=== PATIENT | male | born 1945 | race Caucasian/White ===

== ENCOUNTER 2019-03-03 17:33 | Emergency (ER) | payer MEDICARE, BC ==
--- NOTE | 2019-03-03 18:19 | EDM.PDOC ---
ED HPI GENERAL MEDICAL PROBLEM - General Chief Complaint: Diabetic Complaint Stated Complaint: MEDICAL [facility] Time Seen by Provider: 03/03/19 18:22 Source of Information: Reports: Patient, Family History Limitations: Reports: No Limitations - History of Present Illness INITIAL COMMENTS - FREE TEXT/NARRATIVE: pt was hypoglycemic with a bs of 17. He was given a tube of glucose, no iv was started. I arrival he had a bs of 42. He was given orange juice withj 3 packets of sugar. Onset: Today, Sudden, Other ( He was found in the br between the wall and the stool. His was not able to move him. ) Duration: Hour(s): Location: Reports: Head, Other (pt has been more confused for the past week. ) Associated Symptoms: Reports: Confusion, Diaphoresis, Shortness of Breath, Other (pt has eaten only a apple today. ) - Related Data Allergies Allergy/AdvReac Type Severity Reaction Status Date / Time Iodinated Contrast- Oral and Allergy Swelling Verified 11/18/17 07:08 IV Dye lisinopril Allergy Muscle Verified 11/18/17 07:08 Weakness chocolate Allergy Rash Uncoded 11/18/17 07:05 Home Meds: Home Meds Aspirin [Halfprin] 81 mg PO DAILY 12/20/14 [History] Betamethasone/Propylene Glyc [Betamethasone Dp Aug 0.05% Oin] 1 film TOP BID [History] Bisacodyl [Dulcolax] 5 mg PO DAILY PRN 12/20/14 [History] Cetirizine HCl [Zyrtec] 10 mg PO DAILY PRN 12/20/14 [History] Clobetasol [Temovate 0.05% Oint] 1 film TOP BID PRN 12/20/14 [History] Insulin Aspart [NovoLOG] 25 units SUBCUT TIDMEALS 12/20/14 [History] Insulin Glargine,Hum.Rec.Anlog [Lantus Solostar] 70 units SUBCUT BEDTIME [History] Isosorbide Mononitrate [Imdur] 30 mg PO DAILY 12/20/14 [History] Metoprolol Succinate [Toprol Xl] 50 mg PO DAILY 12/20/14 [History] Ranitidine [Zantac] 150 mg PO DAILY PRN 12/20/14 [History] atorvaSTATin Calcium [Atorvastatin Calcium] 40 mg PO DAILY 12/20/14 [History] metOLazone [Zaroxolyn] 2.5 tab PO DAILY 12/20/14 [History] ED ROS GENERAL - Review of Systems Review Of Systems: See Below Constitutional: Reports: Malaise, Weakness, Decreased Appetite, Other ( confusion) Respiratory: Reports: Shortness of Breath, Wheezing Cardiovascular: Reports: Other (pt is not having chest pain) Endocrine: Reports: Low Glucose, Other (pt had a 17 at the house. After a tube of glucose he had a 42 on arrival. ) GI/Abdominal: Reports: No Symptoms : Reports: No Symptoms Musculoskeletal: Reports: No Symptoms Skin: Reports: No Symptoms ED EXAM GENERAL NO PERIP PULSE - Physical Exam Exam: See Below Text/Narrative:: pt arrived with sob, low bs and alot of edema. He has been confused for the past 2 days. He was on the floor today and his was not able to get him up. Exam Limited By: No Limitations General Appearance: Alert, Anxious Ears: Normal TMs Nose: Normal Inspection Throat/Mouth: Normal Inspection Head: Atraumatic Neck: Normal Inspection Respiratory/Chest: Respiratory Distress, Wheezing Cardiovascular: Regular Rate, Rhythm, Tachycardia GI/Abdominal: Other (Male) Exam: Deferred Rectal (Males) Exam: Deferred Back Exam: Normal Inspection Extremities: Pedal Edema Neurological: Alert, Other (pt becomes obtunded easily. He had a bs of 17 at home and 42 when he got here. ) Course - Vital Signs Last Recorded V/S: Last Vital Signs Temp 35.9 C 03/03/19 18:04 Pulse 63 03/03/19 19:43 Resp 17 03/03/19 19:43 BP 171/59 H 03/03/19 19:43 Pulse Ox 96 03/03/19 19:43 - Orders/Labs/Meds Orders: Active Orders 24 hr Category Date Time Status EKG Documentation Completion [RC] ASDIRECTED Care 03/03/19 19:25 Active EKG Documentation Completion [RC] ASDIRECTED Care 03/03/19 19:33 Active Collazo Catheter Insertion [Insert Urinary Catheter] [OM. Care 03/03/19 19:15 Ordered PC] Q24H RT Aerosol Therapy [RC] ASDIRECTED Care 03/03/19 18:51 Active Urinary Catheter Assessment [RC] ASDIRECTED Care 03/03/19 19:10 Active CULTURE BLOOD [BC] Urgent Lab 03/03/19 19:25 Results CULTURE URINE [RM] Stat Lab 03/03/19 20:12 Received Blood Culture x2 Reflex Set [OM.PC] Urgent Oth 03/03/19 19:08 Ordered Saline Lock Insert [OM.PC] Routine Oth 03/03/19 18:50 Ordered EKG 12 Lead [EK] Routine Ther 03/03/19 19:25 Ordered EKG 12 Lead [EK] Routine Ther 03/03/19 19:33 Ordered Labs: Laboratory Tests 03/03/19 03/03/19 03/03/19 Range/Units 18:17 18:20 18:20 WBC 16.6 H (4.5-11.0) K/uL RBC 4.95 (4.30-5.90) M/uL Hgb 13.7 (12.0-15.0) g/dL Hct 44.5 (40.0-54.0) % MCV 90 (80-98) fL MCH 28 (27-31) pg MCHC 31 L (32-36) % Plt Count 316 (150-400) K/uL Neut % (Auto) 84 H (36-66) % Lymph % (Auto) 7 L (24-44) % [place] % (Auto) 9 H (2-6) % Eos % (Auto) 1 L (2-4) % Baso % (Auto) 0 (0-1) % Puncture Site Lt radial ABG pH 7.240 L (7.350-7.450) ABG pCO2 62.7 H (35.0-42.0) mmHg ABG pO2 68.9 L (75.0-100.0) mmHg ABG HCO3 25.9 (22.0-26.0) mmol/L ABG Total CO2 23.8 (23.0-27.0) mmol/L ABG O2 Saturation 90.1 L (95.0-98.0) % ABG O2 Content 17.6 (15.0-23.0) %vol ABG Base Excess -2.5 mm/L ABG Hemoglobin 14.1 (13.5-18.0) g/dL ABG Oxyhemoglobin 88.6 % ABG Carboxyhemoglobin 0.9 (0.0-1.6) % ABG Methemoglobin 0.8 % Manish Test Passed O2 Delivery Device Nasal cannula Oxygen Flow Rate 4 L Sodium 140 (140-148) mmol/L Potassium 4.1 (3.6-5.2) mmol/L Chloride 103 (100-108) mmol/L Carbon Dioxide 29 (21-32) mmol/L Anion Gap 8.5 (5.0-14.0) mmol/L BUN 94 H* (7-18) mg/dL Creatinine 7.0 H* (0.8-1.3) mg/dL Est Cr Clr Drug Dosing 9.71 mL/min Estimated GFR (MDRD) 8 L (>60) Glucose 53 L (74-106) mg/dL Lactic Acid (0.4-2.0) mmol/L Calcium 8.6 (8.5-10.1) mg/dL Total Bilirubin 0.4 (0.2-1.0) mg/dL AST 28 (15-37) U/L ALT 30 (12-78) U/L Alkaline Phosphatase 109 (46-116) U/L Troponin I (0.000-0.056) ng/mL NT-Pro-B Natriuret Pep (5-450) pg/mL Total Protein 7.1 (6.4-8.2) g/dL Albumin 2.4 L (3.4-5.0) g/dL Globulin 4.7 H (2.3-3.5) g/dL Albumin/Globulin Ratio 0.5 L (1.2-2.2) Urine Color Urine Appearance Urine pH (4.5-8.0) Ur Specific [place] (1.008-1.030) Urine Protein (NEGATIVE) mg/dL Urine Glucose (UA) (NEGATIVE) mg/dL Urine Ketones (NEGATIVE) mg/dL Urine Occult Blood (NEGATIVE) Urine Nitrite (NEGAITVE) Urine Bilirubin (NEGATIVE) Urine Urobilinogen (NORMAL) mg/dL Ur Leukocyte Esterase (NEGATIVE) Urine RBC (0-5) Urine WBC (0-5) Ur Epithelial Cells Amorphous Sediment Urine Bacteria Urine Mucus Urine Other 03/03/19 03/03/19 03/03/19 Range/Units 18:20 18:20 19:28 WBC (4.5-11.0) K/uL RBC (4.30-5.90) M/uL Hgb (12.0-15.0) g/dL Hct (40.0-54.0) % MCV (80-98) fL MCH (27-31) pg MCHC (32-36) % Plt Count (150-400) K/uL Neut % (Auto) (36-66) % Lymph % (Auto) (24-44) % [place] % (Auto) (2-6) % Eos % (Auto) (2-4) % Baso % (Auto) (0-1) % Puncture Site ABG pH (7.350-7.450) ABG pCO2 (35.0-42.0) mmHg ABG pO2 (75.0-100.0) mmHg ABG HCO3 (22.0-26.0) mmol/L ABG Total CO2 (23.0-27.0) mmol/L ABG O2 Saturation (95.0-98.0) % ABG O2 Content (15.0-23.0) %vol ABG Base Excess mm/L ABG Hemoglobin (13.5-18.0) g/dL ABG Oxyhemoglobin % ABG Carboxyhemoglobin (0.0-1.6) % ABG Methemoglobin % Manish Test O2 Delivery Device Oxygen Flow Rate L Sodium (140-148) mmol/L Potassium (3.6-5.2) mmol/L Chloride (100-108) mmol/L Carbon Dioxide (21-32) mmol/L Anion Gap (5.0-14.0) mmol/L BUN (7-18) mg/dL Creatinine (0.8-1.3) mg/dL Est Cr Clr Drug Dosing mL/min Estimated GFR (MDRD) (>60) Glucose (74-106) mg/dL Lactic Acid 1.0 (0.4-2.0) mmol/L Calcium (8.5-10.1) mg/dL Total Bilirubin (0.2-1.0) mg/dL AST (15-37) U/L ALT (12-78) U/L Alkaline Phosphatase (46-116) U/L Troponin I 0.024 (0.000-0.056) ng/mL NT-Pro-B Natriuret Pep 4488 H (5-450) pg/mL Total Protein (6.4-8.2) g/dL Albumin (3.4-5.0) g/dL Globulin (2.3-3.5) g/dL Albumin/Globulin Ratio (1.2-2.2) Urine Color Urine Appearance Urine pH (4.5-8.0) Ur Specific [place] (1.008-1.030) Urine Protein (NEGATIVE) mg/dL Urine Glucose (UA) (NEGATIVE) mg/dL Urine Ketones (NEGATIVE) mg/dL Urine Occult Blood (NEGATIVE) Urine Nitrite (NEGAITVE) Urine Bilirubin (NEGATIVE) Urine Urobilinogen (NORMAL) mg/dL Ur Leukocyte Esterase (NEGATIVE) Urine RBC (0-5) Urine WBC (0-5) Ur Epithelial Cells Amorphous Sediment Urine Bacteria Urine Mucus Urine Other 03/03/19 Range/Units 19:45 WBC (4.5-11.0) K/uL RBC (4.30-5.90) M/uL Hgb (12.0-15.0) g/dL Hct (40.0-54.0) % MCV (80-98) fL MCH (27-31) pg MCHC (32-36) % Plt Count (150-400) K/uL Neut % (Auto) (36-66) % Lymph % (Auto) (24-44) % [place] % (Auto) (2-6) % Eos % (Auto) (2-4) % Baso % (Auto) (0-1) % Puncture Site ABG pH (7.350-7.450) ABG pCO2 (35.0-42.0) mmHg ABG pO2 (75.0-100.0) mmHg ABG HCO3 (22.0-26.0) mmol/L ABG Total CO2 (23.0-27.0) mmol/L ABG O2 Saturation (95.0-98.0) % ABG O2 Content (15.0-23.0) %vol ABG Base Excess mm/L ABG Hemoglobin (13.5-18.0) g/dL ABG Oxyhemoglobin % ABG Carboxyhemoglobin (0.0-1.6) % ABG Methemoglobin % Manish Test O2 Delivery Device Oxygen Flow Rate L Sodium (140-148) mmol/L Potassium (3.6-5.2) mmol/L Chloride (100-108) mmol/L Carbon Dioxide (21-32) mmol/L Anion Gap (5.0-14.0) mmol/L BUN (7-18) mg/dL Creatinine (0.8-1.3) mg/dL Est Cr Clr Drug Dosing mL/min Estimated GFR (MDRD) (>60) Glucose (74-106) mg/dL Lactic Acid (0.4-2.0) mmol/L Calcium (8.5-10.1) mg/dL Total Bilirubin (0.2-1.0) mg/dL AST (15-37) U/L ALT (12-78) U/L Alkaline Phosphatase (46-116) U/L Troponin I (0.000-0.056) ng/mL NT-Pro-B Natriuret Pep (5-450) pg/mL Total Protein (6.4-8.2) g/dL Albumin (3.4-5.0) g/dL Globulin (2.3-3.5) g/dL Albumin/Globulin Ratio (1.2-2.2) Urine Color Yellow Urine Appearance Turbid Urine pH 5.0 (4.5-8.0) Ur Specific [place] 1.020 (1.008-1.030) Urine Protein 500 H (NEGATIVE) mg/dL Urine Glucose (UA) Normal (NEGATIVE) mg/dL Urine Ketones Negative (NEGATIVE) mg/dL Urine Occult Blood Large (NEGATIVE) Urine Nitrite Negative (NEGAITVE) Urine Bilirubin Negative (NEGATIVE) Urine Urobilinogen Normal (NORMAL) mg/dL Ur Leukocyte Esterase Trace (NEGATIVE) Urine RBC Packed H (0-5) Urine WBC Semi-packed H (0-5) Ur Epithelial Cells Moderate Amorphous Sediment Moderate Urine Bacteria Many Urine Mucus Not seen Urine Other Meds: Medications Discontinued Medications Generic Name Dose Route Start Last Admin Trade Name Freq PRN Reason Stop Dose Admin Albuterol/Ipratropium 3 ml 03/03/19 18:51 03/03/19 19:12 Duoneb 3.0-0.5 Mg/3 Ml NEB 03/03/19 18:52 3 ml ONETIME ONE Administration Albuterol/Ipratropium Confirm 03/03/19 18:52 03/03/19 19:12 Duoneb 3.0-0.5 Mg/3 Ml Administered 03/03/19 18:53 Not Given Dose 3 ml .ROUTE .STK-MED ONE Dextrose/Water Confirm 03/03/19 19:00 03/03/19 19:19 Dextrose 50% In Water Administered 03/03/19 19:01 Not Given Dose 50 ml .ROUTE .STK-MED ONE Dextrose/Water 25 ml 03/03/19 19:16 03/03/19 19:19 Dextrose 50% In Water IVPUSH 03/03/19 19:17 25 ml ONETIME ONE Administration Dextrose/Water 25 ml 03/03/19 20:09 03/03/19 20:36 Dextrose 50% In Water IVPUSH 03/03/19 20:10 25 ml ONETIME ONE Administration Furosemide 40 mg 03/03/19 19:03 03/03/19 19:15 Lasix IVPUSH 03/03/19 19:04 40 mg ONETIME ONE Administration Furosemide 100 mg 03/03/19 19:33 03/03/19 19:41 Lasix IVPUSH 03/03/19 19:34 100 mg NOW ONE Administration Dextrose/Water 1,000 mls @ 100 mls/hr 03/03/19 19:45 03/03/19 19:46 Dextrose 5% In Water IV 100 mls/hr ASDIRECTED NAVNEET Administration Sodium Chloride 10 ml 03/03/19 18:50 03/03/19 19:15 Saline Flush FLUSH 10 ml ASDIRECTED PRN Administration Keep Vein Open - Re-Assessments/Exams Free Text/Narrative Re-Assessment/Exam: 03/03/19 19:21 pt was found to have a high co2 at 67. He was placed on bipap. He has o2 sats on bipap of 95 and he was in the 70s. He does not have chest pain. His glcose on arrival was 42. He would arouse but he did remain obtunded. He was found to have a creatnine of 7.8 and for that reason he will be transfered [facility] because of possible dialysis. He had a chest xray which looks congested. His wbc is 14,000. He is not vomiting and thuis far is able to hold fluids down. A collazo cath was inserted and he will be given lasix 40mg iv. he has a sinus rhythm and he has not had chest pain. 03/03/19 20:22 last bs was found to be 79. He was given another 25 cc of 50 % glucose. He is not as responsive as he was on arrival. He will definitely need a cat scan [facility] for further evaluation. Will allow the manager solar to do that after transfer. Departure - Departure Time of Disposition: 20:45 Disposition: DC/Tfer to [facility] 02 Condition: Fair Clinical Impression: Fluid overload, Hypoglycemia, Renal insufficiency - Discharge Information Referrals: Yesi Corea MD [Primary Care Provider] - Forms: ED Department Discharge Care Plan Goals: transfer to [facility]. - My Orders Last 24 Hours: My Active Orders 03/03/19 18:50 Saline Lock Insert [OM.PC] Routine 03/03/19 18:51 RT Aerosol Therapy [RC] ASDIRECTED 03/03/19 19:08 Blood Culture x2 Reflex Set [OM.PC] Urgent 03/03/19 19:10 Urinary Catheter Assessment [RC] ASDIRECTED 03/03/19 19:15 Collazo Catheter Insertion [Insert Urinary Catheter] [OM.PC] Q24H 03/03/19 19:25 EKG Documentation Completion [RC] ASDIRECTED CULTURE BLOOD [BC] Urgent EKG 12 Lead [EK] Routine 03/03/19 19:33 EKG Documentation Completion [RC] ASDIRECTED EKG 12 Lead [EK] Routine 03/03/19 20:12 CULTURE URINE [RM] Stat - Assessment/Plan Last 24 Hours: My Active Orders 03/03/19 18:50 Saline Lock Insert [OM.PC] Routine 03/03/19 18:51 RT Aerosol Therapy [RC] ASDIRECTED 03/03/19 19:08 Blood Culture x2 Reflex Set [OM.PC] Urgent 03/03/19 19:10 Urinary Catheter Assessment [RC] ASDIRECTED 03/03/19 19:15 Collazo Catheter Insertion [Insert Urinary Catheter] [OM.PC] Q24H 03/03/19 19:25 EKG Documentation Completion [RC] ASDIRECTED CULTURE BLOOD [BC] Urgent EKG 12 Lead [EK] Routine 03/03/19 19:33 EKG Documentation Completion [RC] ASDIRECTED EKG 12 Lead [EK] Routine 03/03/19 20:12 CULTURE URINE [RM] Stat
[2019-03-03] MEDS ORDERED: Sodium Chloride 0.9% 10 ML Syringe FLUSH PRN (18:50)
[2019-03-03] MEDS ORDERED: Albuterol/Ipratropium 3.0-0.5 MG/3 ML Neb Soln NEB ONE (18:51)
[2019-03-03] MEDS ORDERED: Albuterol/Ipratropium 3.0-0.5 MG/3 ML Neb Soln ONE (18:52)
--- NOTE | 2019-03-03 18:57 | CRLCR ---
INDICATION: Shortness of breath, low oxygen saturations. TECHNIQUE: Chest radiograph 1 view COMPARISON: None FINDINGS: Portable AP upright view of the chest dated 02/24/2019 at 6:30 p.m. [employer]. Cardiac silhouette enlarged with senescent calcifications of the aortic arch. Central vascular congestion with likely mild degree of interstitial pulmonary edema. Superimposed left basilar atelectasis and or infiltrate. No definite pleural effusions or pneumothorax. IMPRESSION: 1. Cardiomegaly with likely mild degree of interstitial pulmonary edema. 2. Left retrocardiac atelectasis and/or infiltrate. Dictated by Konstantin Best MD @ 03/03/2019 6:55:28 PM Dictated by: Konstantin Best MD @ 03/03/2019 18:55:34 (Electronically Signed)
[2019-03-03] MEDS ORDERED: 50% Dextrose in Water 50 ML Syringe ONE (19:00)
[2019-03-03] MEDS ORDERED: Furosemide 40 MG/4 ML VIAL IVPUSH ONE (19:03)
[2019-03-03] MEDS ORDERED: 50% Dextrose in Water 50 ML Syringe IVPUSH ONE ×2 (19:16→20:09)
[2019-03-03] MEDS ORDERED: Furosemide 100 MG/10 ML SDV IVPUSH ONE (19:33)
[2019-03-03 19:44] VITALS: BP 171/59
[2019-03-03] MEDS ORDERED: Dextrose 5% in Water 1,000 ML IV SCH (19:45)
== END 2019-03-03 20:30 ==
LOC: JP.ED 17:33
DX: E16.2 Hypoglycemia, unspecified (principal); N28.9 Disorder of kidney and ureter, unspecified; E87.70 Fluid overload, unspecified; Z91.041 Radiographic dye allergy status; Z91.018 Allergy to other foods; Z88.8 Allergy status to other drugs, medicaments and biological substances; Z79.82 Long term (current) use of aspirin; Z79.899 Other long term (current) drug therapy
CPT/HCPCS: 36415; 36600; 51702; 71045; 80053; 81001; 82803; 82962; 83605; 83880; 84484; 85025; 87040; 87086; 93005; 94640; 96361; 96374; 96375; 96376; 99285; A4216; J1940; J7060; J7620-GY